=== PATIENT | female | born 1935 | race Caucasian/White ===

== ENCOUNTER → 2020-05-30 11:03 | Outpatient (BNVA) | payer OTHER, SELFPAY | PROVIDERS: PCP Family Medicine; Visit Provider Nurse Practitioner Family | DX: I48.0 Paroxysmal atrial fibrillation (principal); I10 Essential (primary) hypertension | CPT/HCPCS: 93005; 99212 ==

== ENCOUNTER 2020-10-09 10:09 | Emergency (ER) | payer OTHER, SELFPAY ==
--- NOTE | ~2020-10-09 | XR_ITS ---
EXAMINATION: XR CHEST CLINICAL INFORMATION: Chest pain COMPARISON: June 04, 2019 TECHNIQUE: AP portable view of the chest was obtained. FINDINGS: There is chronic pleural parenchymal scarring seen within the right lung. No acute parenchymal disease, pneumothorax, or pleural effusion appreciated. Heart normal size. No evidence of pulmonary edema. XR/XR chest 1V IMPRESSION: No acute disease.
--- NOTE | 2020-10-09 10:30 | ED.CHESTPAIN ---
HPI - Chest Pain General Chief Complaint: Chest Pain Stated Complaint: chest pain Time Seen by Provider: 10/09/20 10:30 Source: patient Mode of arrival: ambulatory Limitations: no limitations History of Present Illness HPI narrative: Pain intermittent for the past 2 nights with radiation into her left arm. Over a year ago she had a stress test that was negative. She did have electrical cardioversion complaint: chest pain Onset (ago): day(s) (2) Timing of current episode: episodic Onset: during rest Pain location: left chest Pain radiation: left arm Severity: moderate Quality: burning Relieving factors: nothing Exacerbating factors: nothing Risk Factors Coronary artery disease risk factors: diabetes, hyperlipidemia and hypertension Related Data Home Medications Medication Instructions Recorded Confirmed amiodarone 200 mg tablet 200 mg PO DAILY 05/30/20 10/09/20 amitriptyline 10 mg tablet 10 mg PO BEDTIME 05/30/20 10/09/20 atorvastatin 40 mg tablet 40 mg PO DAILY 05/30/20 10/09/20 furosemide 20 mg tablet 20 mg PO DAILY 05/30/20 10/09/20 meclizine 25 mg tablet 25 mg PO TID PRN 05/30/20 10/09/20 metformin 500 mg tablet 500 mg PO DAILY@1700 05/30/20 10/09/20 sertraline 25 mg tablet 25 mg PO DAILY tab 05/30/20 10/09/20 calcium carbonate [Calcium Antacid] 1 mg PO BID 10/09/20 10/09/20 calcium polycarbophil [Fiber-Lax] 1 tab PO BID 10/09/20 10/09/20 cholecalciferol (vitamin D3) 2 tab PO DAILY 10/09/20 10/09/20 [Vitamin D3] docusate sodium [DOK] 1 cap PO BID 10/09/20 10/09/20 fluticasone propionate 1 spray INTRANASAL DAILY 10/09/20 10/09/20 loratadine 1 tab PO DAILY 10/09/20 10/09/20 omega-3 acid ethyl esters 2 cap PO DAILY 10/09/20 10/09/20 Previous Rx's Medication Instructions Recorded apixaban 2.5 mg tablet 2.5 mg PO BID 30 Days #60 tab 07/07/20 metoprolol tartrate 25 mg tablet 25 mg PO BID 30 Days #60 tab 07/07/20 amlodipine 2.5 mg tablet 2.5 mg PO QAM #30 tab 09/01/20 Allergies Allergy/AdvReac Type Severity Reaction Status Date / Time lisinopril [LISINOPRIL] Allergy Mild COUGH Verified 10/09/20 10:42 Review of Systems Constitutional: Constitutional: Reports no additional constitutional complaints Eyes: Eyes: Reports no additional eye complaints ENT: Denies dizziness Cardiovascular: Cardiovascular: Reports no additional cardiovascular complaints Respiratory: Respiratory: Reports as per HPI Gastrointestinal: Gastrointestinal: Reports no additional gastrointestinal complaints Genitourinary: Genitourinary: Reports no additional female genitourinary complaints Musculoskeletal: Musculoskeletal: Reports no additional musculoskeletal complaints Integumentary/Breasts: Skin/Breast: Denies rash Neurologic: Reports system reviewed and no additional complaints, except as documented, Denies dizziness and Denies Sensory deficit (Neuro) Psychiatric: Psychiatric: Denies anxiety [facility] Past Medical History Medical History Diabetes mellitus Diastolic dysfunction HLD (hyperlipidemia) HTN (hypertension) PAF (paroxysmal atrial fibrillation) Family History Family History Father No problems noted. Mother No problems noted. Social History Social History Alcohol intake: never Smoking Status: Current some day smoker Smoked in Last 30 Days: No Use of substances other than those prescribed or required for medical reasons: No Any prior treatment program specific to substance use: No Advance Directives: Yes Advance Directives on File: Yes Advance Directives Date on File: 10/09/20 Physical Exam Vital Signs: Vital Signs: Last Vital Signs Temp 98.5 F 10/09/20 10:33 Pulse 57 10/09/20 13:42 Resp 16 10/09/20 13:42 BP 149/79 H 10/09/20 13:42 Pulse Ox 96 10/09/20 13:42 Body Mass Index 31.7 Const: General: healthy appearing Nutritional Appearance: average body habitus Orientation/consciousness: oriented to person and patient oriented x3 Limitations: no limitations HENMT: Head: Yes normal to inspection Ears: external ears normal General nose exam: Normal external nose present Mouth: Normal oral and palatal mucosa present and oropharynx normal Throat: Yes posterior oropharynx normal Eyes: General: appearance normal, both eyes and all related structures Neck: Other: supple Neck: Yes normal visual inspection Chest: Chest palpation & inspection: normal inspection of the chest Resp: Auscultation: clear to auscultation bilaterally Cardio: Jugular venous distension: no JVD Rate: regular rate Rhythm: regular rhythm Heart sounds: S1 normal heart sound present and S2 normal heart sound present GI: Inspection: Yes normal to inspection Palpation (GI): Soft to palpation, nontender and No hepatosplenomegaly present Auscultation: normal bowel sounds : General: Yes no CVA tenderness Back/Spine/Pelvis: Back: no CVA tenderness Skin: General skin exam: no rashes or lesions noted Neuro: General: oriented to person and patient oriented x3 Cranial nerves: Yes CN's II-XII intact bilaterally Motor exam (neuro): 5/5 motor strength present throughout Sensory Exam: No Sensory deficit (Neuro) Extrem: General: Yes normal to inspection Psych: Appearance: grossly normal Course Course Course Narrative: discussed with Dr Joseph second troponin negative he will set her up for repeat stress test MDM - Chest Pain Differential Diagnosis Differential diagnosis: Likely atypical chest pain and chest pain Lab Data Result diagrams: 10/09/20 11:01 10/09/20 11:54 Labs: Lab Results 10/09/20 10/09/20 10/09/20 Range/Units 11:01 11:01 11:04 WBC 6.9 (4.8-10.8) X10*3/uL RBC 4.93 (4.20-5.50) X10*6/uL Hgb 12.9 (12.0-16.0) g/dl Hct 38.4 (37-47) % MCV 77.9 L (80-98) fL MCH 26.2 L (27.0-33.0) pg MCHC 33.6 (31.0-35.0) g/dl RDW 16.1 H (11.0-16.0) % Plt Count 193 (160-400) X10*3/uL MPV 12.7 H (9.4-12.3) fL Immature Gran % (Auto) 0.3 (0.0-0.4) % Neut % (Auto) 58.7 (45-73) % Lymph % (Auto) 26.0 (20-40) % [place] % (Auto) 10.8 (2-11) % Eos % (Auto) 3.2 (0-4) % Baso % (Auto) 1.0 (0-2) % Lymph # (Auto) 1.8 (1.2-4.9) X10*3/uL [place] # (Auto) 0.7 (0.1-1.2) X10*3/uL Eos # (Auto) 0.2 (0.0-0.4) X10*3/uL Baso # (Auto) 0.1 (0.0-0.2) X10*3/uL Abs Immat Gran (auto) 0.02 (0.00-0.03) X10*3/uL Absolute Neuts (auto) 4.0 (2.0-8.3) X10*3/uL Absolute Nucleated RBC 0.000 (0.0-0.012) X10*3/uL Nucleated RBC % (auto) 0.0 (0.0-0.2) /100WBC Hold Blue Top SEE NOTE Sodium (135-145) mmol/L Potassium (3.3-5.1) mmol/L Chloride (96-108) mmol/L Carbon Dioxide (22-29) mmol/L Anion Gap (12-20) BUN (9-16) mg/dL Creatinine (0.5-1.4) mg/dL Estim Creat Clear Calc Estimated GFR Random Glucose (60-115) mg/dL Calcium (8.4-10.2) mg/dL Troponin I High Sens 3.7 (<3.5-17.0) ng/L 10/09/20 10/09/20 Range/Units 11:54 14:45 WBC (4.8-10.8) X10*3/uL RBC (4.20-5.50) X10*6/uL Hgb (12.0-16.0) g/dl Hct (37-47) % MCV (80-98) fL MCH (27.0-33.0) pg MCHC (31.0-35.0) g/dl RDW (11.0-16.0) % Plt Count (160-400) X10*3/uL MPV (9.4-12.3) fL Immature Gran % (Auto) (0.0-0.4) % Neut % (Auto) (45-73) % Lymph % (Auto) (20-40) % [place] % (Auto) (2-11) % Eos % (Auto) (0-4) % Baso % (Auto) (0-2) % Lymph # (Auto) (1.2-4.9) X10*3/uL [place] # (Auto) (0.1-1.2) X10*3/uL Eos # (Auto) (0.0-0.4) X10*3/uL Baso # (Auto) (0.0-0.2) X10*3/uL Abs Immat Gran (auto) (0.00-0.03) X10*3/uL Absolute Neuts (auto) (2.0-8.3) X10*3/uL Absolute Nucleated RBC (0.0-0.012) X10*3/uL Nucleated RBC % (auto) (0.0-0.2) /100WBC Hold Blue Top Sodium 141 (135-145) mmol/L Potassium 4.1 (3.3-5.1) mmol/L Chloride 107 (96-108) mmol/L Carbon Dioxide 27 (22-29) mmol/L Anion Gap 11 L (12-20) BUN 15 (9-16) mg/dL Creatinine 1.12 (0.5-1.4) mg/dL Estim Creat Clear Calc 34.7 Estimated GFR 47 Random Glucose 143 H (60-115) mg/dL Calcium 9.3 (8.4-10.2) mg/dL Troponin I High Sens 3.5 (<3.5-17.0) ng/L ECG Data ECG #1: Attestation: I personally reviewed and interpreted this ECG as follows: Interpretation: normal sinus rate of 60, first degree AV block, old inferior CO qs in III and AVF, no st or twave changes Discharge Plan Discharge Clinical Impression: Atypical chest pain Chest pain Qualifiers: Chest pain type: unspecified Qualified Code(s): R07.9 - Chest pain, unspecified Patient Disposition: Home, Self-Care Prescriptions: No Action metoprolol tartrate 25 mg tablet 25 mg PO BID 30 Days Qty: 60 RF: 6 apixaban [Eliquis] 2.5 mg tablet 2.5 mg PO BID 30 Days Qty: 60 RF: 6 amlodipine 2.5 mg tablet 2.5 mg PO QAM Qty: 30 RF: 5 calcium carbonate [Calcium Antacid] 200 mg calcium (500 mg) tablet,chewable 1 mg PO BID RF: 0 calcium polycarbophil [Fiber-Lax] 625 mg tablet 1 tab PO BID RF: 0 docusate sodium [DOK] 100 mg capsule 1 cap PO BID RF: 0 fluticasone propionate 50 mcg/actuation spray,suspension 1 spray intranasal DAILY RF: 0 cholecalciferol (vitamin D3) [Vitamin D3] 10 mcg (400 unit) tablet 2 tab PO DAILY RF: 0 loratadine 10 mg tablet 1 tab PO DAILY RF: 0 omega-3 acid ethyl esters 1 gram capsule 2 cap PO DAILY RF: 0 amiodarone 200 mg tablet 200 mg PO DAILY RF: 0 furosemide [Lasix] 20 mg tablet 20 mg PO DAILY RF: 0 metformin 500 mg tablet 500 mg PO DAILY@1700 RF: 0 sertraline 25 mg tablet 25 mg PO DAILY RF: 0 amitriptyline 10 mg tablet 10 mg PO BEDTIME RF: 0 atorvastatin 40 mg tablet 40 mg PO DAILY RF: 0 meclizine 25 mg tablet 25 mg PO TID PRN (Reason: Dizziness) RF: 0 Referrals: Radha Linda DO [Primary Care Provider] - 1 week Darrian Joseph MD [Physician] - 1 week
[2020-10-09 10:33] VITALS: BP 116/47; PULSE 61; RESP 18; TEMP 36.9; O2SAT 96; BMI 31.7
--- NOTE | 2020-10-09 10:36 | ECG_ITS ---
Test Reason : CHEST PAIN Blood Pressure : / mmHG Vent. Rate : 060 BPM Atrial Rate : 060 BPM P-R Int : 208 ms QRS Dur : 088 ms QT Int : 458 ms P-R-T Axes : 063 -18 066 degrees QTc Int : 458 ms Normal sinus rhythm Inferior infarct , age undetermined Abnormal ECG When compared with ECG of 04-JUN-2019 19:31, No significant change was found Referred By: Waldo Barton Electronically Signed By:JEF GONZALES MD
[2020-10-09] MEDS: Aspirin Enteric Coated 81 MG TABLET.DR 162 MG PO (11:10)
[2020-10-09] MEDS: Nitroglycerin 2 % Oint 1 GM Packet 1 INCH TRANSDERMA (11:10)
--- NOTE | 2020-10-09 11:17 | PC.NURSE ---
Pt alert and oriented, skin pink, warm, dry, LS CTA, denies SOB/difficulty breathing. +1 BLE edema. NSR. Pt reports intermittent mid sternal pain. Pt awaiting CT scan at this time. Daughter at bedside.
[2020-10-09 11:26] LABS: MANUAL DIFF FLAG NO
[2020-10-09 11:29] VITALS: PULSE 57
[2020-10-09 11:31] LABS: Basophils Absolute Auto 0.1 X10*3/uL (0.0-0.2); Eosinophils Absolute Auto 0.2 X10*3/uL (0.0-0.4); Eosinophils Percent Auto 3.2 % (0-4); Hematocrit 38.4 % (37-47); Hemoglobin 12.9 g/dl (12.0-16.0); Imm Gran Abs Auto 0.02 X10*3/uL (0.00-0.03); Imm Gran Pct Auto 0.3 % (0.0-0.4); Lymphocytes Absolute Auto 1.8 X10*3/uL (1.2-4.9); Mean Corpuscular HGB Conc 33.6 g/dl (31.0-35.0); Mean Corpuscular Hemoglobin 26.2 pg (27.0-33.0); Mean Corpuscular Volume 77.9 fL (80-98); Mean Platelet Volume 12.7 fL (9.4-12.3); Monocytes Absolute Auto 0.7 X10*3/uL (0.1-1.2); Monocytes Percent Auto 10.8 % (2-11); Neutrophils Percent Auto 58.7 % (45-73); Platelet Count 193 X10*3/uL (160-400); Red Blood Count 4.93 X10*6/uL (4.20-5.50); Red Cell Distribution Width 16.1 % (11.0-16.0); White Blood Count 6.9 X10*3/uL (4.8-10.8)
[2020-10-09 11:59] LABS: Troponin-I High Sensitivity 3.7 ng/L (<3.5-17.0)
[2020-10-09 12:18] VITALS: BP 152/86; PULSE 59; RESP 18; O2SAT 95
[2020-10-09 12:36] LABS: Anion Gap 11 (12-20); Blood Urea Nitrogen 15 mg/dL (9-16); Calcium 9.3 mg/dL (8.4-10.2); Carbon Dioxide 27 mmol/L (22-29); Chloride 107 mmol/L (96-108); Creatinine Clr Calc Pharmacy 34.7; Estimated Glomerular Filt Rate 47; Glucose Random 143 mg/dL (60-115); Potassium 4.1 mmol/L (3.3-5.1); Sodium 141 mmol/L (135-145)
[2020-10-09 13:42] VITALS: BP 149/79; PULSE 57; RESP 16; O2SAT 96
--- NOTE | 2020-10-09 13:42 | PC.NURSE ---
Pt denies pain/discomfort. ED provider awaiting call back from cardiology and dispo
[2020-10-09 15:19] LABS: Troponin-I High Sensitivity 3.5 ng/L (<3.5-17.0)
== END 2020-10-09 16:40 | disposition home or self-care (01) ==
PROVIDERS: Emergency Provider Emergency Medicine; PCP Family Medicine
DX: R07.9 Chest pain, unspecified (principal); E11.9 Type 2 diabetes mellitus without complications; I10 Essential (primary) hypertension; E78.5 Hyperlipidemia, unspecified; Z79.02 Long term (current) use of antithrombotics/antiplatelets; Z79.899 Other long term (current) drug therapy; Z79.84 Long term (current) use of oral hypoglycemic drugs; F17.200 Nicotine dependence, unspecified, uncomplicated
CPT/HCPCS: 36415; 71045; 80048; 84484; 85025; 93005; 99283; 99285

== ENCOUNTER → 2020-10-17 08:26 | Outpatient (REF) | payer OTHER, SELFPAY ==
--- NOTE | ~2020-10-17 | NM_ITS ---
Myocardial perfusion study Indication: Chest pain to evaluate for myocardial ischemia Technique: The patient was brought in for a Lexiscan perfusion study on 10/17/2020. Patient performed low-level exercise and was injected 0.4 mg of Lexiscan intravenously. Within a minute of injection, any 5 mCi of sestamibi was given intravenously. Images were obtained using the SPECT gamma camera interlaced with the gating device. Images were obtained in supine position. Resting perfusion study was performed on 10/20/2020. Patient was administered 25 mCi of sestamibi intravenously at rest. Images were then obtained in supine position. Images obtained with and without CT attenuation. Total DLP 109 mGy-cm. Images were processed with the software and compared side to side in short axis, horizontal long axis and vertical long axis views. Findings: The stress perfusion study showed non attenuated images show mildly reduced uptake in the distal inferolateral wall of the LV myocardium. Remainder of the LV myocardium is normally perfused. Attenuated corrected images also shows small area of mildly reduced uptake in the distal inferolateral wall of the LV myocardium. The gated study shows normal LV systolic function with calculated LVEF of greater than 70 %. LV cavity is normal in size. The gated study shows normal systolic wall thickening and contraction of segments. Resting study shows normal uptake of radiotracer in all segments of LV myocardium. Gating at rest reveals normal systolic wall motion with ejection fraction at greater than 70 %. The findings are consistent with small area of mild intensity distal inferolateral ischemia. NM/NM marianne perf SPECT rest & str Impression: 1. Myocardial perfusion imaging study shows mild intensity distal inferolateral ischemia probably in branch vessel distribution 2. Gated LVEF is greater than 70% 3. Transient ischemic dilatation not present EKG is nondiagnostic for ischemia
--- NOTE | 2020-10-17 08:33 | CA_ITS ---
Acquisition Time: 2020-10-17 09:41:23 Total Exercise Time: 00:02:00 Test Indications: CHEST PAIN Medications: METFORMIN ELIQUIX ATORVASTATIN Protocol: LEXISCAN Max HR: 083 BPM 60% of Pred: 138 BPM Max BP: 120/078 mmHG Max Work Load: 1.0 METS Pharmacological stress test using Lexiscan while sitting and kicking her feet. Pt tolerated well, denies any anginal sx, sx of dizziness reversed with Aminophyline 75 mg IV. Non-diagnostic for ischemia. Nuclear images to follow. Normotensive response to test. Test reviewed with Dr. Hawthorne. Referred By: Darrian Joseph Overread By: Ina Astorga NP
== END ==
LOC: HO.CARD 08:26
PROVIDERS: PCP Family Medicine; Visit Provider Internal Medicine Cardiovascular Disease
DX: R07.89 Other chest pain (principal); I48.0 Paroxysmal atrial fibrillation
CPT/HCPCS: 78452; 93016; 93017; 93018; A9500; J0280; J2785

== ENCOUNTER 2020-12-26 15:39 | Outpatient (REF) | payer MEDICARE, SELFPAY ==
[2020-12-26 16:29] LABS: Anion Gap 11 (12-20); Blood Urea Nitrogen 18 mg/dL (9-16); Calcium 9.3 mg/dL (8.4-10.2); Carbon Dioxide 26 mmol/L (22-29); Chloride 106 mmol/L (96-108); Estimated Glomerular Filt Rate 39; Glucose Random 291 mg/dL (60-115); Potassium 4.4 mmol/L (3.3-5.1); Sodium 139 mmol/L (135-145)
== END 2020-12-26 15:40 | disposition home or self-care (01) ==
LOC: HO.LAB 15:39
PROVIDERS: PCP Family Medicine; Visit Provider Internal Medicine Cardiovascular Disease
DX: I11.9 Hypertensive heart disease without heart failure (principal)
CPT/HCPCS: 36415; 80048

== ENCOUNTER → 2021-06-03 14:46 | Outpatient (BNVA) | payer MEDICARE, SELFPAY | PROVIDERS: PCP Family Medicine; Referring Provider Family Medicine; Visit Provider Nurse Practitioner Family | DX: I48.0 Paroxysmal atrial fibrillation (principal); I25.10 Atherosclerotic heart disease of native coronary artery without angina pectoris; I10 Essential (primary) hypertension; E78.5 Hyperlipidemia, unspecified | CPT/HCPCS: 93005; 99212 ==

== ENCOUNTER 2021-08-11 15:35 | Outpatient (REF) | payer MEDICARE, SELFPAY ==
--- NOTE | ~2021-08-11 | US_ITS ---
EXAMINATION: US VENOUS ULTRASOUND WITH DOPPLER LOWER EXTREMITY, BILATERAL CLINICAL INFORMATION: Edema. COMPARISON: None TECHNIQUE: Ultrasound of the deep veins is performed from the hip to the calf with compression sonography and color and pulse Doppler assessment. Spectral analysis with color-flow imaging is performed. FINDINGS: RIGHT: There is normal venous compression and respiratory variation and augmented flow. The visualized common femoral vein, superficial femoral vein, profunda femoral vein and popliteal vein demonstrate no incidental masses. Calf veins not well seen. Visualized portions of the posterior tibial vein are normal. No popliteal fossa cyst. LEFT: There is normal venous compression and respiratory variation and augmented flow. The visualized common femoral vein, superficial femoral vein, profunda femoral vein, popliteal vein, and the trifurcation region shows no evidence of deep venous thrombosis. There is no significant popliteal fossa cyst. If the patient's symptoms persist, followup ultrasound in 5 days 7 days might be of value to exclude proximal propagation from a non-visualized calf vein. US/US venous duplex LE BI IMPRESSION: No DVT demonstrated in the bilateral lower extremity.
== END 2021-08-11 15:36 | disposition home or self-care (01) ==
LOC: HO.US 15:35
PROVIDERS: PCP Family Medicine; Visit Provider Internal Medicine
DX: R60.0 Localized edema (principal)
CPT/HCPCS: 93970

== ENCOUNTER 2021-09-01 07:15 | Outpatient (REF) | payer OTHER, SELFPAY ==
[2021-09-01 07:32] LABS: MANUAL DIFF FLAG NO
[2021-09-01 08:04] LABS: Basophils Absolute Auto 0.1 X10*3/uL (0.0-0.2); Basophils Percent Auto 1.1 % (0-2); Eosinophils Absolute Auto 0.3 X10*3/uL (0.0-0.4); Eosinophils Percent Auto 4.5 % (0-4); Hematocrit 37.5 % (37.0-47.0); Hemoglobin 12.2 g/dl (12.0-16.0); Imm Gran Abs Auto 0.03 X10*3/uL (0.00-0.03); Imm Gran Pct Auto 0.5 % (0.0-0.4); Lymphocytes Absolute Auto 1.8 X10*3/uL (1.2-4.9); Lymphocytes Percent Auto 28.1 % (20-40); Mean Corpuscular HGB Conc 32.5 g/dl (31.0-35.0); Mean Corpuscular Hemoglobin 25.7 pg (27.0-33.0); Mean Corpuscular Volume 79.1 fL (80.0-98.0); Mean Platelet Volume 12.7 fL (9.4-12.3); Monocytes Absolute Auto 0.6 X10*3/uL (0.1-1.2); Monocytes Percent Auto 9.9 % (2-11); Neutrophils Absolute Auto 3.6 x10*3/uL (2.0-8.3); Neutrophils Percent Auto 55.9 % (45-73); Platelet Count 147 X10*3/uL (160-400); Red Blood Count 4.74 X10*6/uL (4.20-5.50); Red Cell Distribution Width 16.4 % (11.0-16.0); White Blood Count 6.5 X10*3/uL (4.8-10.8)
[2021-09-01 08:28] LABS: Alanine Aminotransferase 34 U/L (0-31); Albumin Level 4.1 g/dL (3.5-5.0); Alkaline Phosphatase 59 U/L (39-117); Anion Gap 14 (12-20); Aspartate Amino Transferase 66 U/L (5-31); Bilirubin Total 0.8 mg/dL (0.0-1.0); Blood Urea Nitrogen 12 mg/dL (9-16); Calcium 9.7 mg/dL (8.4-10.2); Carbon Dioxide 25 mmol/L (22-29); Chloride 107 mmol/L (96-108); Cholesterol 144 mg/dL; Estimated Glomerular Filt Rate 49; Glucose Fasting 154 mg/dL (60-99); HDL Cholesterol 58 mg/dL; LDL Cholesterol Calculated 75 mg/dl; Potassium 4.4 mmol/L (3.3-5.1); Sodium 142 mmol/L (135-145); Total Protein 7.7 g/dL (6.5-8.0); Triglycerides 55 mg/dL
[2021-09-01 08:52] LABS: Thyroid Stimulating Hormone 7.58 uIU/mL (0.32-4.0)
== END 2021-09-01 07:16 | disposition home or self-care (01) ==
LOC: HO.LAB 07:15
PROVIDERS: PCP Family Medicine; Visit Provider Nurse Practitioner Family
DX: I48.0 Paroxysmal atrial fibrillation (principal); I10 Essential (primary) hypertension; E78.5 Hyperlipidemia, unspecified
CPT/HCPCS: 36415; 80053; 80061; 84443; 85025

== ENCOUNTER → 2021-09-03 14:53 | Outpatient (BNVA) | payer OTHER, SELFPAY | PROVIDERS: PCP Family Medicine; Referring Provider Family Medicine; Visit Provider Internal Medicine Cardiovascular Disease | DX: I48.0 Paroxysmal atrial fibrillation (principal); I25.10 Atherosclerotic heart disease of native coronary artery without angina pectoris; R60.0 Localized edema; Z79.01 Long term (current) use of anticoagulants; Z79.899 Other long term (current) drug therapy | CPT/HCPCS: 93005; 99212 ==

== ENCOUNTER 2022-02-05 06:50 | Emergency (ER) | payer OTHER, SELFPAY ==
--- NOTE | 2022-02-05 | ECG_ITS ---
Test Reason : head pain,leg numbness Blood Pressure : / mmHG Vent. Rate : 060 BPM Atrial Rate : 060 BPM P-R Int : 200 ms QRS Dur : 088 ms QT Int : 470 ms P-R-T Axes : 061 -22 056 degrees QTc Int : 470 ms Normal sinus rhythm Normal ECG When compared with ECG of 09-OCT-2020 10:50, No significant change was found Referred By: Elizabeth Shaw Electronically Signed By:DULCE SONI
--- NOTE | ~2022-02-05 | CT_ITS ---
EXAMINATION: CT HEAD W/O IV CONTRAST CT CERVICAL SPINE W/O IV CONTRAST CLINICAL INFORMATION: History of fall, head strike. COMPARISON: Head CT from 11/06/2018. TECHNIQUE: Head - Contiguous axial imaging of the head was performed from the skull base to the vertex without the administration of intravenous contrast, and axial images are reconstructed at 2 mm and 5 mm slice thickness. Cervical spine - A volumetric, helical CT acquisition of the cervical spine was obtained without contrast; in addition to the standard set of axial images, multiplanar reformatted images were provided in the coronal and sagittal imaging planes. This CT examination was performed using dose optimization techniques as appropriate, variously including the following: *Automated exposure control *Adjustment of mA and/or kV according to patient size (this includes techniques or standardized protocols for targeted exams where dose is matched to indication/reason for exam; i.e. extremities or head) *Use of iterative reconstruction technique DLP: 885 mGy-cm (total) FINDINGS: HEAD: No evidence of intracranial hemorrhage, major vascular territory infarction, focal mass effect or midline shift. [place]izcarra to white matter differentiation is preserved. There is atherosclerotic calcification of cavernous carotid arteries. Mild parenchymal volume loss with commensurate prominence of ventricles and sulci. No hydrocephalus. The calvarium is intact and the visualized paranasal sinuses, mastoid air cells and middle ear cavities are clear. The temporomandibular joints are unremarkable. Prior ocular lens replacements. CERVICAL SPINE: No acute findings. The craniocervical junction is normal. The occipital condyles, dens and atlantodental articulation are intact. The vertebral body heights and alignment are maintained. No fractures in the anterior or posterior elements. No prevertebral soft tissue swelling. Multilevel osteophyte formation spine. Moderate degenerative disc space narrowing at C5-C6. Otherwise, the disc spaces are generally well-preserved. Small posterior disc-osteophyte complexes at C3-C4, C4-C5 and C5-C6. No significant narrowing of the central spinal canal. At C5-C6, uncovertebral joint hypertrophy causes moderate right neural foraminal stenosis. No hematoma in the visualized neck. Thyroid gland is unremarkable. Centrilobular and paraseptal emphysema at visualized upper lobes. No pneumothorax. Severe osteoarthritis of right sternoclavicular joint. CT/CT cervical spine wo con IMPRESSION: * No acute intracranial pathology compared to 11/06/2018. * No fracture or malalignment in the degenerated cervical spine. * Centrilobular and paraseptal emphysema of the visualized upper lobes.
--- NOTE | ~2022-02-05 | XR_ITS ---
EXAMINATION: XR SHOULDER, LEFT CLINICAL INFORMATION: Fall with pain COMPARISON: None TECHNIQUE: Four views of the left shoulder. FINDINGS: There is no fracture or dislocation. The glenohumeral joint is aligned. There are osteophytes at the glenohumeral joint. The acromioclavicular joint is intact with mild hypertrophic degenerative change. There is a prominent subacromial spur. Bronchial wall thickening in the lungs. XR/XR shoulder LT min 2V IMPRESSION: No fracture or malalignment. Mild degenerative changes. Prominent subacromial spurring can predispose to rotator cuff injury.
--- NOTE | ~2022-02-05 | CT_ITS ---
EXAMINATION: CT CHEST WITHOUT CONTRAST CLINICAL INFORMATION: History of fall, pain. COMPARISON: Radiographs of chest and left shoulder from 02/05/2022. TECHNIQUE: Multidetector volumetric CT imaging of the chest was done. Axial MIP volume rendering provided. Sagittal and coronal reformatted images were obtained. This CT examination was performed using dose optimization techniques as appropriate, variously including the following: *Automated exposure control *Adjustment of mA and/or kV according to patient size (this includes techniques or standardized protocols for targeted exams where dose is matched to indication/reason for exam; i.e. extremities or head) *Use of iterative reconstruction technique DLP: 352 mGy-cm FINDINGS: LUNGS AND PLEURA: There is respiratory motion on the acquired images. Mild emphysematous changes of upper lobes. Lungs have mosaic attenuation. This suggests likelihood of air trapping phenomenon from small airways inflammation. Due to mosaic attenuation, it is somewhat difficult to exclude any superimposed mild edema, but there is no thickening of interlobular septa (i.e., no overt edema). No focal consolidation. Linear opacities of mild atelectasis in the lingula and right lower lobe. There is negligible pleural fluid at the posterior right base. CARDIOVASCULAR: Three-vessel coronary artery atherosclerotic disease. Cardiomegaly. No pericardial effusion. Pulmonary arteries are normal in caliber. There is mild prominence of pulmonary veins. MEDIASTINUM AND LOWER NECK: No mediastinal mass. Thyroid gland is unremarkable. No esophageal wall thickening. Small amount of gas is present within the esophageal vestibule. No overt hiatal hernia. LYMPHATICS: No pathologic sized lymph nodes. UPPER ABDOMEN: Adrenal glands are normal. Atherosclerotic calcification of the partially visualized abdominal aorta and splenic artery. Mild atrophy of the pancreas. SKELETAL AND CHEST WALL: Large body habitus. No chest wall hematoma. Mild spondylosis of the thoracic spine. 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 The evaluation of the ribs is partially limited by the respiratory motion artifact. No acute displaced rib fractures are identified. Bones have normal alignment at each shoulder. CT/CT chest wo con IMPRESSION: * Cardiomegaly and pulmonary vascular congestion. * Lungs have mosaic attenuation; this can be a manifestation of air trapping phenomenon from small airways inflammation. * Atherosclerotic disease of coronary arteries. * No rib fractures are seen. Also, no fracture or malalignment at either shoulder, status post recent fall.
--- NOTE | ~2022-02-05 | XR_ITS ---
EXAMINATION: XR CHEST CLINICAL INFORMATION: Fall. Weakness. COMPARISON: 10/09/2020 TECHNIQUE: 2 views of the chest were obtained. FINDINGS: Lung volumes are low. Bronchial wall thickening seen. Small right-sided pleural effusion persistent pleural thickening. No pneumothorax. The cardiomediastinal silhouette is unchanged, with a tortuous aorta. No acute osseous abnormalities. XR/XR chest 2V IMPRESSION: Low lung volumes. Bronchial wall thickening could be chronic or associated with acute small airways process. Blunted right costophrenic angle may represent small pleural effusion versus pleural thickening, as this is similar in appearance to prior imaging.
[2022-02-05 07:53] VITALS: BP 153/75; PULSE 61; RESP 20; TEMP 37; O2SAT 98; BMI 35.2
--- NOTE | 2022-02-05 08:20 | ED_ITS ---
HPI - General Adult General Chief complaint: Headache Stated complaint: fall about 1 week ago w/ head inj, headache Time Seen by Provider: 02/05/22 08:20 Source: patient and family (daughter) Mode of arrival: ambulatory Limitations: language barrier History of Present Illness HPI narrative: Patient is an 86 year old female presenting to the emergency department today with a headache and feeling generally unwell after a fall 1 week ago. Patient states that she fell a week and a half ago and at that time, hit her head. Patient denies any loss of consciousness with the incident. Patient's daughter states that they are in the process of moving her down to [place]. Patient denies any dizziness, lightheadedness, abdominal pain, nausea, vomiting, fever, chills, blurry vision, double vision, loss of vision, chest pain, difficulty breathing, shortness of breath, back pain, night sweats, pain with urination, increased urinary frequency, increased urinary urgency, blood in her urine or stool, syncope or a near syncopal episode, recent trauma or falls, bowel incontinence, bladder incontinence, bowel retention, bladder retention, or any other complaints at this time. Onset (ago): week(s) (1.5) Location: head Radiation: non-radiation Severity: mild Severity scale (1-10): 3 Quality: dull Pain Consistency: constant Relieving factors: none Exacerbating factors: none Associated symptoms: weakness Treatments prior to arrival: none Related Data Home Medications Medication Instructions Recorded Confirmed amiodarone 200 mg tablet 200 mg PO DAILY 05/30/20 09/03/21 amitriptyline 10 mg tablet 10 mg PO BEDTIME 05/30/20 09/03/21 atorvastatin 40 mg tablet 40 mg PO DAILY 05/30/20 09/03/21 furosemide 20 mg tablet (Lasix) 20 mg PO DAILY 05/30/20 09/03/21 meclizine 25 mg tablet 25 mg PO TID PRN Dizziness 05/30/20 09/03/21 metformin 500 mg tablet 500 mg PO DAILY@1700 05/30/20 09/03/21 sertraline 25 mg tablet 25 mg PO DAILY 05/30/20 09/03/21 calcium carbonate 200 mg calcium 1 mg PO BID 10/09/20 09/03/21 (500 mg) chewable tablet (Calcium Antacid) calcium polycarbophil 625 mg 1 tab PO BID 10/09/20 09/03/21 tablet (Fiber-Lax) cholecalciferol (vitamin D3) 10 2 tab PO DAILY 10/09/20 09/03/21 mcg (400 unit) tablet (Vitamin D3) docusate sodium 100 mg capsule 1 cap PO BID 10/09/20 09/03/21 (DOK) fluticasone propionate 50 1 spray intranasal DAILY 10/09/20 09/03/21 mcg/actuation nasal spray,suspension loratadine 10 mg tablet 1 tab PO DAILY 10/09/20 09/03/21 omega-3 acid ethyl esters 1 gram 2 cap PO DAILY 10/09/20 09/03/21 capsule Previous Rx's Medication Instructions Recorded apixaban 5 mg tablet (Eliquis) 5 mg PO BID #60 tabs 09/04/21 amlodipine 2.5 mg tablet 2.5 mg PO QAM #90 tabs 01/15/22 metoprolol tartrate 25 mg tablet 25 mg PO BID 90 days #180 tabs 01/15/22 Allergies Allergy/AdvReac Type Severity Reaction Status Date / Time lisinopril [LISINOPRIL] Allergy Mild COUGH Verified 06/03/21 14:58 Review of Systems Constitutional: Constitutional: Reports no additional constitutional complaints, Denies chills, Denies fever(s), Reports headache(s), Denies night sweats and Reports weakness Eyes: Eyes: Reports no additional eye complaints, Denies blurry vision, Denies change in vision, Denies diplopia, Denies eye discharge, Denies loss of vision and Denies eye pain ENT: Denies dizziness and Reports headache(s) Cardiovascular: Cardiovascular: Reports no additional cardiovascular complaints, Denies chest pain, Denies lightheadedness, Denies Loss of Consciousness and Denies dyspnea Respiratory: Respiratory: Reports no additional respiratory complaints and Denies dyspnea Gastrointestinal: Gastrointestinal: Reports no additional gastrointestinal complaints, Denies abdominal pain, Denies melena, Denies hematochezia, Denies change in bowel habits and Denies change in stool character Genitourinary: Genitourinary: Denies hematuria, Denies urinary frequency, Denies dysuria, Denies urinary incontinence, Denies urinary hesitancy and Denies urinary urgency Musculoskeletal: Musculoskeletal: Reports no additional musculoskeletal complaints, Denies numbness and Denies tingling Neurologic: Denies dizziness, Reports headache(s), Denies loss of vision, Denies numbness, Denies tingling and Reports weakness Psychiatric: Psychiatric: Reports no additional psychiatric complaints Endocrine: Endocrine: Reports no additional endocrine complaints Hematologic/Lymphatic: Hematologic/Lymphatic: Reports no additional hematologic/lymphatic complaints Allergic/Immunologic: Allergic/Immunologic: Reports no additional allergic/immunologic complaints [facility] Past Medical History Attestation statement: The following information was validated with the patient. Source: old records reviewed Medical History Diabetes mellitus Diastolic dysfunction HLD (hyperlipidemia) HTN (hypertension) PAF (paroxysmal atrial fibrillation) Family History Family History Father No problems noted. Mother No problems noted. Social History Social History Alcohol intake: never Patient Tobacco Use Status: Never used Tobacco Smoked in Last 30 Days: No Use of substances other than those prescribed or required for medical reasons: No Advance Directives: Yes Advance Directives on File: Yes Advance Directives Date on File: 10/09/20 Physical Exam ED Vital Signs: Vital Signs - 24 hr 02/05/22 07:53 02/05/22 08:24 02/05/22 12:02 Temperature 98.6 F 97.9 F Pulse Rate 61 61 59 Respiratory Rate 20 14 16 Blood Pressure 153/75 H 153/76 H 157/73 H Pulse Oximetry 98 94 96 Oxygen Delivery Method Room Air Room Air Room Air BMI result Body Mass Index 35.2 Const General: cooperative, no acute distress, alert and awake Nutritional Appearance: well nourished Orientation/consciousness: patient oriented x3 Limitations: no limitations [facility] Head: Yes normal to inspection and Yes atraumatic Ears: hearing grossly normal bilaterally and external ears normal General nose exam: Normal external nose present, no nasal discharge noted and no epistaxis Face and sinus: Yes normal facial exam, No abrasion and No laceration Mouth: Normal oral and palatal mucosa present, no drooling and no muffled voice Eyes General: appearance normal, both eyes and all related structures Periorbital: periorbital findings normal Eyelids: Yes eyelids normal Conjunctivae: conjunctivae normal Pupils: Equal, round and reactive pupils present EOM: EOMs intact bilaterally Neck Neck: Yes normal visual inspection, Yes full ROM and Yes no lymphadenopathy Chest Chest palpation & inspection: normal inspection of the chest Resp Effort & Inspection: normal respiratory effort and able to speak in complete sentences Auscultation: clear to auscultation bilaterally Cardio Rate: regular rate Rhythm: regular rhythm GI Inspection: Yes normal to inspection Palpation (GI): Soft to palpation, not firm, nontender, no guarding and not rigid Neuro General: patient oriented x3 and moves all extremities Cranial nerves: Yes Equal, round and reactive pupils present Cognition (Neuro): normal cognition Motor exam (neuro): 5/5 motor strength present throughout Sensory Exam: Normal double simultaneous stimulation for sensation Coordination: [id number] test normal Extrem General: Yes normal to inspection, Yes full ROM and Yes capillary refill normal Psych Appearance: grossly normal Mental Status: mental status grossly normal Affect: normal affect Attitude: cooperative Thought process: Normal thought process present Thought content: Normal thought content present Insight: Good insight present (Psych) Medical Decision Making MDM Narrative Medical decision making narrative: Patient is an 86 year old female presenting to the emergency department today with weakness and a headache. Patient's physical exam was unremarkable. Patient's blood work was unremarkable. Patient's urine showed no acute process. Patient's EKG was unremarkable. Patient's chest x-ray showed a possible pleural effusion. Patient's chest CT showed no acute process. Patient's head and c-spine CTs showed no acute process. I explained my physical exam findings as well as all test results to the patient and the patient's daughter. I answered all questions asked by the patient and the patient's daughter. I stressed the importance of the patient taking her medication as prescribed. I stressed the importance of the patient following up with her primary care provider. I stressed the importance of the patient returning to the emergency department immediately if her symptoms were to worsen or if she were to develop any dizziness, shortness of breath, difficulty breathing, chest pain, blurry vision, loss of vision, nausea, vomiting, abdominal pain, fever, chills, back pain, or any other complaints. Patient and the patient's daughter verbalized agreement and understanding with this treatment plan and discharge. Differential Diagnosis Differential Diagnosis: weakness Medical Records Medical records reviewed: Yes I reviewed the patient's medical records. Lab Data Lab results reviewed: Yes I reviewed the patient's lab results. Result diagrams: 02/05/22 09:31 02/05/22 09:31 Labs: Lab Results 02/05/22 02/05/22 02/05/22 Range/Units 09:30 09:31 09:31 WBC 9.0 (4.8-10.8) X10*3/uL RBC 5.41 (4.20-5.50) X10*6/uL Hgb 13.2 (12.0-16.0) g/dl Hct 40.0 (37.0-47.0) % MCV 73.9 L (80.0-98.0) fL MCH 24.4 L (27.0-33.0) pg MCHC 33.0 (31.0-35.0) g/dl RDW 16.4 H (11.0-16.0) % Plt Count 150 L (160-400) X10*3/uL MPV 11.6 (9.4-12.3) fL Immature Gran % (Auto) 0.2 (0.0-0.4) % Neut % (Auto) 72.9 (45-73) % Lymph % (Auto) 15.4 L (20-40) % [place] % (Auto) 8.9 (2-11) % Eos % (Auto) 2.0 (0-4) % Baso % (Auto) 0.6 (0-2) % Lymph # (Auto) 1.4 (1.2-4.9) X10*3/uL [place] # (Auto) 0.8 (0.1-1.2) X10*3/uL Eos # (Auto) 0.2 (0.0-0.4) X10*3/uL Baso # (Auto) 0.1 (0.0-0.2) X10*3/uL Abs Immat Gran (auto) 0.02 (0.00-0.03) X10*3/uL Absolute Neuts (auto) 6.6 (2.0-8.3) x10*3/uL Absolute Nucleated RBC 0.000 (0.0-0.012) X10*3/uL Nucleated RBC % (auto) 0.0 (0.0-0.2) /100WBC VBG pH (7.32-7.43) VBG pCO2 mmHg VBG pO2 mmHg VBG HCO3 (22-26) mmol/L VBG O2 Saturation % VBG Base Excess mmol/L Sodium 144 (135-145) mmol/L Potassium 4.2 (3.3-5.1) mmol/L Chloride 108 (96-108) mmol/L Carbon Dioxide 26 (22-29) mmol/L Anion Gap 14 (12-20) BUN 15 (9-16) mg/dL Creatinine 1.12 (0.5-1.4) mg/dL Estim Creat Clear Calc 35.4 Estimated GFR 46 Random Glucose 162 H (60-115) mg/dL Calcium 9.5 (8.4-10.2) mg/dL Magnesium 2.1 (1.6-2.6) mg/dL Total Bilirubin 0.7 (0.0-1.0) mg/dL AST 66 H (5-31) U/L ALT 34 H (0-31) U/L Alkaline Phosphatase 73 D (39-117) U/L Troponin I High Sens (<3.5-17.0) ng/L B-Natriuretic Peptide (<100) pg/mL Total Protein 8.4 H (6.5-8.0) g/dL Albumin 4.4 (3.5-5.0) g/dL Urine Color Urine Appearance Urine pH (5.0-8.0) Ur Specific [place] (1.005-1.025) Urine Protein (Neg-Trace) mg/dL Urine Glucose (UA) (Negative) mg/dL Urine Ketones (Negative) mg/dL Urine Blood (Negative) Urine Nitrite (Negative) Ur Leukocyte Esterase (Negative) COVID-19 (TAMMY) Negative (Negative) COVID-19 Clin Com See Note 02/05/22 02/05/22 02/05/22 Range/Units 09:31 09:31 09:34 WBC (4.8-10.8) X10*3/uL RBC (4.20-5.50) X10*6/uL Hgb (12.0-16.0) g/dl Hct (37.0-47.0) % MCV (80.0-98.0) fL MCH (27.0-33.0) pg MCHC (31.0-35.0) g/dl RDW (11.0-16.0) % Plt Count (160-400) X10*3/uL MPV (9.4-12.3) fL Immature Gran % (Auto) (0.0-0.4) % Neut % (Auto) (45-73) % Lymph % (Auto) (20-40) % [place] % (Auto) (2-11) % Eos % (Auto) (0-4) % Baso % (Auto) (0-2) % Lymph # (Auto) (1.2-4.9) X10*3/uL [place] # (Auto) (0.1-1.2) X10*3/uL Eos # (Auto) (0.0-0.4) X10*3/uL Baso # (Auto) (0.0-0.2) X10*3/uL Abs Immat Gran (auto) (0.00-0.03) X10*3/uL Absolute Neuts (auto) (2.0-8.3) x10*3/uL Absolute Nucleated RBC (0.0-0.012) X10*3/uL Nucleated RBC % (auto) (0.0-0.2) /100WBC VBG pH 7.36 (7.32-7.43) VBG pCO2 42 mmHg VBG pO2 42 mmHg VBG HCO3 24 (22-26) mmol/L VBG O2 Saturation 62.0 % VBG Base Excess -1.0 mmol/L Sodium (135-145) mmol/L Potassium (3.3-5.1) mmol/L Chloride (96-108) mmol/L Carbon Dioxide (22-29) mmol/L Anion Gap (12-20) BUN (9-16) mg/dL Creatinine (0.5-1.4) mg/dL Estim Creat Clear Calc Estimated GFR Random Glucose (60-115) mg/dL Calcium (8.4-10.2) mg/dL Magnesium (1.6-2.6) mg/dL Total Bilirubin (0.0-1.0) mg/dL AST (5-31) U/L ALT (0-31) U/L Alkaline Phosphatase (39-117) U/L Troponin I High Sens 4.5 (<3.5-17.0) ng/L B-Natriuretic Peptide 155 H (<100) pg/mL Total Protein (6.5-8.0) g/dL Albumin (3.5-5.0) g/dL Urine Color Urine Appearance Urine pH (5.0-8.0) Ur Specific [place] (1.005-1.025) Urine Protein (Neg-Trace) mg/dL Urine Glucose (UA) (Negative) mg/dL Urine Ketones (Negative) mg/dL Urine Blood (Negative) Urine Nitrite (Negative) Ur Leukocyte Esterase (Negative) COVID-19 (TAMMY) (Negative) COVID-19 Clin Com 02/05/22 Range/Units 12:01 WBC (4.8-10.8) X10*3/uL RBC (4.20-5.50) X10*6/uL Hgb (12.0-16.0) g/dl Hct (37.0-47.0) % MCV (80.0-98.0) fL MCH (27.0-33.0) pg MCHC (31.0-35.0) g/dl RDW (11.0-16.0) % Plt Count (160-400) X10*3/uL MPV (9.4-12.3) fL Immature Gran % (Auto) (0.0-0.4) % Neut % (Auto) (45-73) % Lymph % (Auto) (20-40) % [place] % (Auto) (2-11) % Eos % (Auto) (0-4) % Baso % (Auto) (0-2) % Lymph # (Auto) (1.2-4.9) X10*3/uL [place] # (Auto) (0.1-1.2) X10*3/uL Eos # (Auto) (0.0-0.4) X10*3/uL Baso # (Auto) (0.0-0.2) X10*3/uL Abs Immat Gran (auto) (0.00-0.03) X10*3/uL Absolute Neuts (auto) (2.0-8.3) x10*3/uL Absolute Nucleated RBC (0.0-0.012) X10*3/uL Nucleated RBC % (auto) (0.0-0.2) /100WBC VBG pH (7.32-7.43) VBG pCO2 mmHg VBG pO2 mmHg VBG HCO3 (22-26) mmol/L VBG O2 Saturation % VBG Base Excess mmol/L Sodium (135-145) mmol/L Potassium (3.3-5.1) mmol/L Chloride (96-108) mmol/L Carbon Dioxide (22-29) mmol/L Anion Gap (12-20) BUN (9-16) mg/dL Creatinine (0.5-1.4) mg/dL Estim Creat Clear Calc Estimated GFR Random Glucose (60-115) mg/dL Calcium (8.4-10.2) mg/dL Magnesium (1.6-2.6) mg/dL Total Bilirubin (0.0-1.0) mg/dL AST (5-31) U/L ALT (0-31) U/L Alkaline Phosphatase (39-117) U/L Troponin I High Sens (<3.5-17.0) ng/L B-Natriuretic Peptide (<100) pg/mL Total Protein (6.5-8.0) g/dL Albumin (3.5-5.0) g/dL Urine Color Yellow Urine Appearance Clear Urine pH 8.0 (5.0-8.0) Ur Specific [place] <= 1.005 (1.005-1.025) Urine Protein Negative (Neg-Trace) mg/dL Urine Glucose (UA) Negative (Negative) mg/dL Urine Ketones Negative (Negative) mg/dL Urine Blood Negative (Negative) Urine Nitrite Negative (Negative) Ur Leukocyte Esterase Negative (Negative) COVID-19 (TAMMY) (Negative) COVID-19 Clin Com Imaging Data Chest x-ray: Attestation: I personally reviewed and interpreted this imaging study as follows: My impression: Possible pleural effusion. Radiologist's impression: EXAMINATION: XR CHEST CLINICAL INFORMATION: Fall. Weakness. COMPARISON: 10/09/2020 TECHNIQUE: 2 views of the chest were obtained. FINDINGS: Lung volumes are low. Bronchial wall thickening seen. Small right-sided pleural effusion persistent pleural thickening. No pneumothorax. The cardiomediastinal silhouette is unchanged, with a tortuous aorta. No acute osseous abnormalities. XR/XR chest 2V IMPRESSION: Low lung volumes. Bronchial wall thickening could be chronic or associated with acute small airways process. Blunted right costophrenic angle may represent small pleural effusion versus pleural thickening, as this is similar in appearance to prior imaging. Dictated By: Von Briseno MD Signed By: Electronically signed by Von Briseno MD 02/05/[address] scan - chest: Attestation: I personally reviewed and interpreted this imaging study as follows: My impression: No acute process. Radiologist's impression: EXAMINATION: CT CHEST WITHOUT CONTRAST CLINICAL INFORMATION: History of fall, pain.? COMPARISON: Radiographs of chest and left shoulder from 02/05/2022.? TECHNIQUE: Multidetector volumetric CT imaging of the chest was done. Axial MIP volume rendering provided. Sagittal and coronal reformatted images were obtained.? This CT examination was performed using dose optimization techniques as appropriate, variously including the following: *Automated exposure control *Adjustment of mA and/or kV according to patient size (this includes techniques or standardized protocols for targeted exams where dose is matched to indication/reason for exam; i.e. extremities or head) *Use of iterative reconstruction technique DLP: 352 mGy-cm FINDINGS: LUNGS AND PLEURA: There is respiratory motion on the acquired images. Mild emphysematous changes of upper lobes. Lungs have mosaic attenuation. This suggests likelihood of air trapping phenomenon from small airways inflammation. Due to mosaic attenuation, it is somewhat difficult to exclude any superimposed mild edema, but there is no thickening of interlobular septa (i.e., no overt edema). No focal consolidation. Linear opacities of mild atelectasis in the lingula and right lower lobe. There is negligible pleural fluid at the posterior right base. CARDIOVASCULAR: Three-vessel coronary artery atherosclerotic disease. Cardiomegaly. No pericardial effusion. Pulmonary arteries are normal in caliber. There is mild prominence of pulmonary veins. MEDIASTINUM AND LOWER NECK: No mediastinal mass. Thyroid gland is unremarkable. No esophageal wall thickening. Small amount of gas is present within the esophageal vestibule. No overt hiatal hernia. LYMPHATICS: No pathologic sized lymph nodes. UPPER ABDOMEN: Adrenal glands are normal. Atherosclerotic calcification of the partially visualized abdominal aorta and splenic artery. Mild atrophy of the pancreas. SKELETAL AND CHEST WALL: Large body habitus. No chest wall hematoma. Mild spondylosis of the thoracic spine. 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 The evaluation of the ribs is partially limited by the respiratory motion artifact. No acute displaced rib fractures are identified. Bones have normal alignment at each shoulder. CT/CT chest wo con IMPRESSION: *? Cardiomegaly and pulmonary vascular congestion. *? Lungs have mosaic attenuation; this can be a manifestation of air trapping phenomenon from small airways inflammation. *? Atherosclerotic disease of coronary arteries. *? No rib fractures are seen. Also, no fracture or malalignment at either shoulder, status post recent fall. Dictated By: Hany Pichardo MD Signed By: Electronically signed by Hany Pichardo MD 02/05/22 1259 Left Shoulder X-Ray: Attestation: I personally reviewed and interpreted this imaging study as follows: My impression: No acute process. Radiologist's impression: EXAMINATION: XR SHOULDER, LEFT CLINICAL INFORMATION: Fall with pain? COMPARISON: None? TECHNIQUE: Four views of the left shoulder. FINDINGS: There is no fracture or dislocation. The glenohumeral joint is aligned. There are osteophytes at the glenohumeral joint. The acromioclavicular joint is intact with mild hypertrophic degenerative change. There is a prominent subacromial spur. Bronchial wall thickening in the lungs.? XR/XR shoulder LT min 2V IMPRESSION: No fracture or malalignment. Mild degenerative changes. Prominent subacromial spurring can predispose to rotator cuff injury. Dictated By: Von Briseno MD Signed By: Electronically signed by Von Briseno MD 02/05/[address] Head and C-Spine: Attestation: I personally reviewed and interpreted this imaging study as follows: My impression: No acute process. Radiologist's impression: EXAMINATION: CT HEAD W/O IV CONTRAST CT CERVICAL SPINE W/O IV CONTRAST CLINICAL INFORMATION: History of fall, head strike. COMPARISON: Head CT from 11/06/2018. TECHNIQUE: Head - Contiguous axial imaging of the head was performed from the skull base to the vertex without the administration of intravenous contrast, and axial images are reconstructed at 2 mm and 5 mm slice thickness. Cervical spine - A volumetric, helical CT acquisition of the cervical spine was obtained without contrast; in addition to the standard set of axial images, multiplanar reformatted images were provided in the coronal and sagittal imaging planes. This CT examination was performed using dose optimization techniques as appropriate, variously including the following: *Automated exposure control *Adjustment of mA and/or kV according to patient size (this includes techniques or standardized protocols for targeted exams where dose is matched to indication/reason for exam; i.e. extremities or head) *Use of iterative reconstruction technique DLP: 885 mGy-cm (total) FINDINGS: HEAD: No evidence of intracranial hemorrhage, major vascular territory infarction, focal mass effect or midline shift. [place] to white matter differentiation is preserved. There is atherosclerotic calcification of cavernous carotid arteries. Mild parenchymal volume loss with commensurate prominence of ventricles and sulci. No hydrocephalus. The calvarium is intact and the visualized paranasal sinuses, mastoid air cells and middle ear cavities are clear. The temporomandibular joints are unremarkable. Prior ocular lens replacements. CERVICAL SPINE: No acute findings. The craniocervical junction is normal. The occipital condyles, dens and atlantodental articulation are intact. The vertebral body heights and alignment are maintained.? No fractures in the anterior or posterior elements. No prevertebral soft tissue swelling. Multilevel osteophyte formation spine. Moderate degenerative disc space narrowing at C5-C6. Otherwise, the disc spaces are generally well-preserved. Small posterior disc-osteophyte complexes at C3-C4, C4-C5 and C5-C6. No significant narrowing of the central spinal canal. At C5-C6, uncovertebral joint hypertrophy causes moderate right neural foraminal stenosis. No hematoma in the visualized neck. Thyroid gland is unremarkable. Centrilobular and paraseptal emphysema at visualized upper lobes. No pneumothorax. Severe osteoarthritis of right sternoclavicular joint. CT/CT cervical spine wo con IMPRESSION: *? No acute intracranial pathology compared to 11/06/2018. *? No fracture or malalignment in the degenerated cervical spine. *? Centrilobular and paraseptal emphysema of the visualized upper lobes. Dictated By: Hany Pichardo MD Signed By: Electronically signed by Hany Pichardo MD 02/05/22 1014 ECG Data Attestation: I personally reviewed and interpreted this ECG as follows: Prior ECG tracings: available for review Interpretation: Vent. Rate: 060 BPM ? ? Atrial Rate: 060 BPM P-R Int: 200 ms? QRS Dur: 088 ms QT Int: 470 ms ? ? ? P-R-T Axes: 061 -22 056 degrees QTc Int: 470 ms ? Normal sinus rhythm Normal ECG When compared with ECG of 09-OCT-2020 10:50, No significant change was found ? Electronically Signed By:DULCE LARRY DOFACP Dictated By: Dulce Larry DO Signed By: Electronically signed by Dulce Larry DO 02/05/22 1416 Discharge Plan Discharge Clinical Impression: Fall Patient Disposition: Home, Self-Care Instructions: Fall Prevention (ED) Additional Instructions: Follow up with your primary care provider. Return to the emergency department immediately if your symptoms worsen or if you develop any dizziness, shortness of breath, difficulty breathing, chest pain, blurry vision, loss of vision, nausea, vomiting, abdominal pain, fever, chills, back pain, or any other complaints. Prescriptions: No Action Eliquis 5 mg tablet 5 mg PO BID Qty: 60 5RF amlodipine 2.5 mg tablet 2.5 mg PO QAM Qty: 90 1RF metoprolol tartrate 25 mg tablet 25 mg PO BID 90 Days Qty: 180 1RF calcium carbonate [Calcium Antacid] 200 mg calcium (500 mg) tablet,chewable 1 mg PO BID calcium polycarbophil [Fiber-Lax] 625 mg tablet 1 tab PO BID docusate sodium [DOK] 100 mg capsule 1 cap PO BID fluticasone propionate 50 mcg/actuation spray,suspension 1 spray intranasal DAILY cholecalciferol (vitamin D3) [Vitamin D3] 10 mcg (400 unit) tablet 2 tab PO DAILY loratadine 10 mg tablet 1 tab PO DAILY omega-3 acid ethyl esters 1 gram capsule 2 cap PO DAILY amiodarone 200 mg tablet 200 mg PO DAILY furosemide [Lasix] 20 mg tablet 20 mg PO DAILY metformin 500 mg tablet 500 mg PO DAILY@1700 sertraline 25 mg tablet 25 mg PO DAILY amitriptyline 10 mg tablet 10 mg PO BEDTIME atorvastatin 40 mg tablet 40 mg PO DAILY meclizine 25 mg tablet 25 mg PO TID PRN (Reason: Dizziness) Referrals: Radha Linda DO [Primary Care Provider] - Interventions: ED Discharge Assessment Last Done: 02/05/22 13:42 Discharge Date/Time: 02/05/22 13:43 Print Language: Polish
[2022-02-05 08:24] VITALS: BP 153/76; PULSE 61; RESP 14; TEMP 36.6; O2SAT 94
[2022-02-05 09:36] LABS: MANUAL DIFF FLAG NO
[2022-02-05 09:40] LABS: VBG HCO3 24 mmol/L (22-26); VBG pCO2 42 mmHg; VBG pH 7.36 (7.32-7.43); VBG pO2 42 mmHg
[2022-02-05 09:40] LABS: Venous Blood Gas Refer to POC result
[2022-02-05 09:48] LABS: Basophils Absolute Auto 0.1 X10*3/uL (0.0-0.2); Basophils Percent Auto 0.6 % (0-2); Eosinophils Absolute Auto 0.2 X10*3/uL (0.0-0.4); Hemoglobin 13.2 g/dl (12.0-16.0); Imm Gran Abs Auto 0.02 X10*3/uL (0.00-0.03); Imm Gran Pct Auto 0.2 % (0.0-0.4); Lymphocytes Absolute Auto 1.4 X10*3/uL (1.2-4.9); Lymphocytes Percent Auto 15.4 % (20-40); Mean Corpuscular Hemoglobin 24.4 pg (27.0-33.0); Mean Corpuscular Volume 73.9 fL (80.0-98.0); Mean Platelet Volume 11.6 fL (9.4-12.3); Monocytes Absolute Auto 0.8 X10*3/uL (0.1-1.2); Monocytes Percent Auto 8.9 % (2-11); Neutrophils Absolute Auto 6.6 x10*3/uL (2.0-8.3); Neutrophils Percent Auto 72.9 % (45-73); Platelet Count 150 X10*3/uL (160-400); Red Blood Count 5.41 X10*6/uL (4.20-5.50); Red Cell Distribution Width 16.4 % (11.0-16.0)
[2022-02-05 09:51] LABS: COVID-19 Test Negative (Negative); IDNOW Serial# 16C4AD1C
[2022-02-05 09:54] LABS: Alanine Aminotransferase 34 U/L (0-31); Albumin Level 4.4 g/dL (3.5-5.0); Alkaline Phosphatase 73 U/L (39-117); Anion Gap 14 (12-20); Aspartate Amino Transferase 66 U/L (5-31); Bilirubin Total 0.7 mg/dL (0.0-1.0); Blood Urea Nitrogen 15 mg/dL (9-16); Calcium 9.5 mg/dL (8.4-10.2); Carbon Dioxide 26 mmol/L (22-29); Chloride 108 mmol/L (96-108); Creatinine Clr Calc Pharmacy 35.4; Estimated Glomerular Filt Rate 46; Glucose Random 162 mg/dL (60-115); Magnesium 2.1 mg/dL (1.6-2.6); Potassium 4.2 mmol/L (3.3-5.1); Sodium 144 mmol/L (135-145); Total Protein 8.4 g/dL (6.5-8.0)
[2022-02-05 10:00] LABS: B Type Natriuretic Peptide 155 pg/mL (<100); Troponin-I High Sensitivity 4.5 ng/L (<3.5-17.0)
[2022-02-05 12:02] VITALS: BP 157/73; PULSE 59; RESP 16; O2SAT 96
[2022-02-05 12:10] LABS: Appearance Urine Clear; Color Urine Yellow; Glucose Urine UA Negative (Negative); Leukocyte Esterase Urine Negative (Negative); Nitrite Urine Negative (Negative); Specific Gravity - Urine <= 1.005 (1.005-1.025); Urine Blood Negative (Negative); Urine Ketones Negative (Negative); Urine Protein Negative (Neg-Trace)
== END 2022-02-05 13:43 | disposition home or self-care (01) ==
PROVIDERS: Physician Assistant Medical; Emergency Provider Emergency Medicine; PCP Family Medicine
DX: S00.93XA Contusion of unspecified part of head, initial encounter (principal); R51.9 Headache, unspecified; R06.02 Shortness of breath; M54.2 Cervicalgia; R07.89 Other chest pain; M54.6 Pain in thoracic spine; M25.512 Pain in left shoulder; W01.10XA Fall on same level from slipping, tripping and stumbling with subsequent striking against unspecified object, initial encounter; Y93.9 Activity, unspecified; Y92.9 Unspecified place or not applicable; Y99.9 Unspecified external cause status; Z20.822 Contact with and (suspected) exposure to COVID-19; Z79.899 Other long term (current) drug therapy
CPT/HCPCS: 36415; 70450; 71046; 71250; 72125; 73030; 80053; 81003; 82803; 83735; 83880; 84484; 85025; 87635; 93005; 99284

== ENCOUNTER → 2022-03-08 14:39 | Outpatient (BNVA) | payer OTHER, SELFPAY | PROVIDERS: PCP Family Medicine; Referring Provider Family Medicine; Visit Provider Internal Medicine Cardiovascular Disease | DX: I50.32 Chronic diastolic (congestive) heart failure (principal); I48.0 Paroxysmal atrial fibrillation; I25.10 Atherosclerotic heart disease of native coronary artery without angina pectoris | CPT/HCPCS: 93005; 99212 ==

== ENCOUNTER → 2022-04-06 07:40 | Outpatient (REF) | payer OTHER, SELFPAY ==
--- NOTE | 2022-04-06 07:43 | CA_ITS ---
Transthoracic Echocardiogram Patient (Last, First, Middle): Tameka Florian, Gender: Female Date of : 1935 Age: 86 Procedure Date: 04/06/2022 Procedure Type: Transthoracic Echocardiogram Location: OP Height: 152.4 cm Weight: 72.58 kg BSA: 1.70 m2 Heart Rate: bpm BP: 122 / 78 mmHg [employer] Operator: HAILE Referring MD: Darrian Joseph MD Environmental Compliance Technician: Darrian Josehp MD Symptoms: I50.32 - Chronic diastolic (congestive) heart failure Study Quality: Adequate ECG Rhythm: Sinus Conclusions: - 1. Normal LV systolic function with pseudonormal filling pattern 2. Normal cardiac valvular Doppler 3. Normal RV systolic pressure 4. No gross pericardial effusion Findings Left Ventricle Normal left ventricular size, thickness, and systolic function. The visually estimated ejection fraction is between 65-70%. Spectral Doppler is indicative of a pseudonormal filling pattern. Right Ventricle Normal right ventricular cavity size and systolic function. Atria The left atrium is normal in size. Interatrial shunt cannot be excluded. The right atrium is normal in size. Aortic Valve The aortic valve structure and function is likely normal. There is no aortic valve stenosis. There is no aortic valve regurgitation. Mitral Valve Likely normal mitral valve structure and function. There is trace mitral valve regurgitation. There is no mitral valve stenosis. Pulmonic Valve The pulmonic valve was not well visualized. Tricuspid Valve Likely normal tricuspid valve structure and function. There is mild tricuspid valve regurgitation. The right ventricular systolic pressure is normal. The right ventricular systolic pressure is 29 mmHg. Normal right atrial pressure. Great Vessels All visible segments of the aorta are normal in size. The pulmonary artery was not well visualized. Venous The inferior vena cava is normal in size and collapses greater than 50% with inspiration. Pericardium/Pleural There is no evidence of pericardial effusion. Prior Study Comparison Changes noted compared to prior study dated: 02/26/2020. RV systolic pressure is measured to be normal on this study Measurements 2D Linear Measurements IVSd: 1.15 0.6-0.9/0.6-1.0 cm LVIDd: 3.77 3.9-5.3/4.2-5.9 cm LVIDd Index: 2.22 2.4-3.2/2.2-3.1 cm/m2 LVIDs: 2.22 2.0-3.6 cm LVPWd: 0.98 0.7-1.1 cm LA Diam: 3.70 2.7-3.8/3.0-4.0 cm LAIDs Index: 2.18 1.5-2.3 cm/m2 LV Mass: 157.87 67-162/88-224 g LV Mass Index: 92.86 43-95/49-115 g/m2 LVOT Diam: 1.90 3.0+(-)1.3 cm 2D Systolic Function EF 4C: 73.30 >55% EF 2C: 69.30 >55% EF BiP: 70.20 >55% Mitral Valve MV Pk E: 1.12 MV Decel Time: 293.00 E'Lateral: 11.90 E'Medial: 9.79 E/E' Med: 11.40 E/E' Lat: 9.40 PHT: 86.00 MVA PHT: 2.56 Decel [place]: 3.82 Aortic Valve AoV Pk Chance: 1.34 AoV Mn Chance: 0.88 AoV VTI: 0.25 AoV Pk Grad: 7.00 Aov Mn Grad: 4.00 DARIUS Cont.VTI: 2.46 LVOT LVOT Pk Chance: 1.27 LVOT Mn Chance: 0.80 LVOT VTI: 0.22 LVOT Pk Grad: 6.00 LVOT Mn Grad: 3.00 LVOT Diam: 1.90 LVOT Area: 2.84 Diastolic Function MV Pk E: 1.12 E'Medial: 9.79 E/E' Med: 11.40 E' Laterial: 11.90 E/E' Lat: 9.40 Right Ventricle TAPSE (mm): 15.90 TVS' Chance: 10.20 Tricuspid Valve TR Pk Chance: 2.57 TR Pk Grad: 26.00 RA Press: 3.00 RVSP: 29.00 Great Vessels Aorta Sinus of Valsalva: 3.00 2.0-3.[address] [place]: 1.75 1.7-3.4 cm Ao Asc: 3.30 2.1-3.4 cm Updated in Other Vendor System with Status of Final Darrian Joseph MD electronically signed on 04/07/2022 4:19:54 PM with status of Final
== END ==
LOC: HO.CARD 07:40
PROVIDERS: PCP Family Medicine; Visit Provider Internal Medicine Cardiovascular Disease
DX: I50.32 Chronic diastolic (congestive) heart failure (principal)
CPT/HCPCS: 93306